=== PATIENT | female | born 1985 | race Caucasian/White ===

== ENCOUNTER 2018-07-28 13:35 | Emergency (ER) | END 2018-07-28 17:23 | disposition home or self-care (01) ==

== ENCOUNTER 2018-08-24 07:35 | Emergency (ER) | payer MEDICAID ==
[~2018-08-24] VITALS: Ht 157.5 cm; Wt 62.8 kg
[~2018-08-24 07:35] MED LIST: DOCU-144 PO
[2018-08-24 07:36] VITALS: Ht 157.5 cm; Wt 62.8 kg
[2018-08-24] MEDS ORDERED: SOD CHLORIDE 0.9% 1,000 ML IV STA (08:20)
--- NOTE | 2018-08-24 08:28 | ERD ---
ER Documentation Chief Complaint Chief Complaint nausea and vomitting, feel bloated since 2 am today LMP - 07/05/18 HPI 33-year-old female with EGA at 7 weeks approximately by LMP 07/05/2018, presents the emergency department complaining of excessive nausea and vomiting since 2 AM. Patient complains of 6 episodes of nonbloody nonbilious emesis. Patient denies vaginal bleeding or urinary symptoms. Patient has established care with Dr. Hernandes. ROS All systems reviewed and are negative except as per history of present illness. Medications Home Meds Active Scripts Doxylamine Succinate (Unisom) 25 Mg Tablet, 25 MG PO QHS, #30 TAB Prov:SABIHA BURT MD 08/24/18 Pyridoxine Hcl* (Pyridoxine Hcl*) 50 Mg Tablet, 50 MG PO QHS, #30 TAB Prov:SABIHA BURT MD 08/24/18 Docusate Sodium* (Colace*) 100 Mg Capsule, 100 MG PO TID, #30 CAP Prov:SABIHA BURT MD 07/28/18 Allergies Allergies: Coded Allergies: No Known Allergy (Unverified , 07/28/18) PMhx/Soc Medical and Surgical Hx: pt denies Medical Hx, pt denies Surgical Hx Hx Miscellaneous Medical Probl: No Hx Alcohol Use: No Hx Substance Use: No Hx Tobacco Use: No Physical Exam Vitals Vital Signs Date Temp Pulse Resp B/P (MAP) Pulse Ox O2 O2 Flow FiO2 Time Delivery Rate 08/24/18 98.2 78 16 110/76 99 Room Air 10:57 (87) 08/24/18 97.0 68 19 103/50 97 07:36 (67) Physical Exam Const: No acute distress Head: Atraumatic Eyes: Normal Conjunctiva ENT: Normal External Ears, Nose and Mouth. Neck: Full range of motion. No meningismus. Resp: Clear to auscultation bilaterally Cardio: Regular rate and rhythm, no murmurs Abd: Soft, non tender, non distended. Normal bowel sounds Skin: No petechiae or rashes Back: No midline or flank tenderness Ext: No cyanosis, or edema Neur: Awake and alert Psych: Normal Mood and Affect Result Diagram: 08/24/18 0840 1/10/19 0840 Results 24 hrs Laboratory Tests Test 08/24/18 08:40 White Blood Count 10.6 10^3/ul Red Blood Count 4.22 10^6/ul Hemoglobin 13.4 g/dl Hematocrit 39.1 % Mean Corpuscular Volume 92.7 fl Mean Corpuscular Hemoglobin 31.8 pg Mean Corpuscular Hemoglobin Concent 34.3 g/dl Red Cell Distribution Width 13.4 % Platelet Count 244 10^3/UL Mean Platelet Volume 11.0 fl Immature Granulocytes % 0.500 % Neutrophils % 75.5 % Lymphocytes % 17.4 % Monocytes % 5.7 % Eosinophils % 0.4 % Basophils % 0.5 % Nucleated Red Blood Cells % 0.0 /100WBC Immature Granulocytes # 0.050 10^3/ul Neutrophils # 8.0 10^3/ul Lymphocytes # 1.8 10^3/ul Monocytes # 0.6 10^3/ul Eosinophils # 0.0 10^3/ul Basophils # 0.1 10^3/ul Nucleated Red Blood Cells # 0.0 10^3/ul Urine Color YELLOW Urine Clarity SLIGHTLY CLOUDY Urine pH 8.0 Urine Specific [place] 1.012 Urine Ketones NEGATIVE mg/dL Urine Nitrite NEGATIVE mg/dL Urine Bilirubin NEGATIVE mg/dL Urine Urobilinogen NEGATIVE mg/dL Urine Leukocyte Esterase NEGATIVE Binh/ul Urine Microscopic RBC 5 /HPF Urine Microscopic WBC 1 /HPF Urine Squamous Epithelial Cells FEW /HPF Urine Amorphous Crystals MODERATE /HPF Urine Mucus FEW /HPF Urine Hemoglobin NEGATIVE mg/dL Urine Glucose NEGATIVE mg/dL Urine Total Protein NEGATIVE mg/dl Sodium Level 137 mmol/L Potassium Level 3.7 mmol/L Chloride Level 102 mmol/L Carbon Dioxide Level 24 mmol/L Anion Gap 11 Blood Urea Nitrogen 10 mg/dl Creatinine 0.58 mg/dl Est Glomerular Filtrat Rate mL/min > 60 mL/min Glucose Level 98 mg/dl Calcium Level 9.3 mg/dl Total Bilirubin 0.6 mg/dl Direct Bilirubin 0.00 mg/dl Indirect Bilirubin 0.6 mg/dl Aspartate Amino Transf (AST/SGOT) 19 IU/L Alanine Aminotransferase (ALT/SGPT) 16 IU/L Alkaline Phosphatase 71 IU/L Total Protein 7.6 g/dl Albumin 4.2 g/dl Globulin 3.40 g/dl Albumin/Globulin Ratio 1.23 Lipase 35 U/L Beta HCG, Quantitative 872634.0 mIU/ml Current Medications Medications Dose Sig/Laureano Start Time Status Last (Trade) Ordered Route PRN Stop Time Admin Dose Reason Admin Sodium 1,000 ml @ Q1H STAT 08/24/18 DC 08/24/18 Chloride 1,000 mls/hr IV 08:20 08:44 08/24/18 09:19 5 mg ONCE ONCE 08/24/18 DC 08/24/18 Metoclopramid IV 08:30 08:50 e HCl 08/24/18 08:31 (Reglan) Procedures/MDM Vital signs stable, Physical exam unremarkable. Differential diagnosis include but not limited to: Gastroenteritis, appendicitis, dehydration, hyperemesis gravidarum, UTI, anemia. Physical examination and clinical presentation most likely consistent with hyperemesis during . During the ED course the patient remained hemodynamically stable and asymptomatic, she received IV hydration and Reglan p.o. with significant improvement of the symptoms. Results and clinical impression discussed with patient who agrees with management. The patient is stable to be treated outpatient and will be discharged home with close monitoring and follow-up in 2 days with her primary physician. The patient was instructed regarding the outcomes and the potential complications like severe bleeding and . If the patient presents severe bleeding or pain, she was instructed to return to the hospital immediately. Disclaimer: Inadvertent spelling and grammatical errors are likely due to EHR/dictation software use and do not reflect on the overall quality of patient care. Also, please note that the electronic time recorded on this note does not necessarily reflect the actual time of the patient encounter. Departure Diagnosis: Primary Impression: Hyperemesis affecting , antepartum Condition: Stable Additional Instructions: Muchas jr por [facility] para hess servicio. Esperamos que en hess visita a la stephanie de emergencia hess problema medico haya sido solucionado y que se sienta mucho mejor. Para estar seguros que hess mejoria sigue en proceso, le pedimos el favor de hacer bryan susan de seguimiento medico con hess doctor primario en los proximos 2-4 bose. Lleve con usted estos documentos y las medicinas recetadas. Si bari sintomas empeoran, NO SE ESPERE, por favor regrese a stephanie de emergencia INMEDIATAMENTE. En bishop que usted no tenga un mdico de atencin primaria: Llame al mdico o clnica comunitaria de referencia que aparece abajo brien las horas de consultorio para hacer bryan susan para que le vean. CLINICAS: [facility] [phone] [facility] [phone] [address] [facility] [phone] [address] [facility]. [place] [phone] [facility]. [place] [phone] [facility]. [phone] SABIHA RAMIRES MD Aug 24, 2018 08:28
[2018-08-24] MEDS ORDERED: METOCLOPRAMIDE 10 MG INJ IV ONE (08:30)
[2018-08-24] MEDS ORDERED: DOXY25TA55 PO (10:49)
[2018-08-24] MEDS ORDERED: PYRI50TA14 PO (10:49)
[2018-08-24 10:57] VITALS: BP 110/76; PULSE 78; RESP 16
== END 2018-08-24 10:59 | disposition home or self-care (01) ==
LOC: FTE 07:35
DX: O21.9 Vomiting of pregnancy, unspecified (principal); Z3A.01 Less than 8 weeks gestation of pregnancy
CPT/HCPCS: 80053; 81001; 81003; 83690; 84702; 85025; J2765; J7030; Z7502

== ENCOUNTER 2018-11-21 14:32 | Emergency (ER) | payer MEDICAID ==
[~2018-11-21] VITALS: Ht 160 cm; Wt 65.1 kg
[~2018-11-21 14:32] MED LIST changes: +DOXY25TA55 PO; +PYRI50TA14 PO
[2018-11-21 15:02] VITALS: BP 112/63; PULSE 83; RESP 20; Ht 160 cm; Wt 65.1 kg
[2018-11-21] MEDS ORDERED: BEN25 PO (16:20)
[2018-11-21] MEDS ORDERED: NPH10OT RIGHT EAR (16:20)
[2018-11-21] MEDS ORDERED: ACET500C5 PO (16:20)
--- NOTE | 2018-11-21 16:25 | ERD ---
ER Documentation Chief Complaint Chief Complaint c/o sore throat and right ear pain x3 days. 20 weeks HPI 33-year-old female patient with no significant past medical history is a presents to the ED having right ear pain, sore throat, cough that started about 3 days ago. Denies any recent swimming or using Q-tips. Denies any nausea, vomiting, diarrhea, neck stiffness, vaginal bleeding, vaginal discharge, abdominal pain, chest pain, shortness of breath. Reports that her last menstruation is on July 06, 2019. 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 ROS All systems reviewed and are negative except as per history of present illness. Medications Home Meds Active Scripts Neomycin/Polymyxin/Hydrocort* (Cortisporin* Otic) 10 Ml Susp, 4 DROP RIGHT EAR QID for 7 Days, EA Prov:MIR ECHEVARRIA PA-C 11/21/18 Acetaminophen* (Tylophen*) 500 Mg Capsule, 1 CAP PO Q6H PRN for PAIN AND OR ELEVATED TEMP, #20 CAP Prov:MIR ECHEVARRIA PA-C 11/21/18 Diphenhydramine Hcl* (Benadryl*) 25 Mg Cap, 25 MG PO Q6, #30 CAP Prov:MIR ECHEVARRIA PA-C 11/21/18 Doxylamine Succinate (Unisom) 25 Mg Tablet, 25 MG PO QHS, #30 TAB Prov:SABIHA BURT MD 08/24/18 Pyridoxine Hcl* (Pyridoxine Hcl*) 50 Mg Tablet, 50 MG PO QHS, #30 TAB Prov:SABIHA BURT MD 08/24/18 Docusate Sodium* (Colace*) 100 Mg Capsule, 100 MG PO TID, #30 CAP Prov:SABIHA BURT MD 07/28/18 Allergies Allergies: Coded Allergies: No Known Allergy (Unverified , 11/21/18) PMhx/Soc Medical and Surgical Hx: pt denies Medical Hx, pt denies Surgical Hx Hx Miscellaneous Medical Probl: No Hx Alcohol Use: No Hx Substance Use: No Hx Tobacco Use: No Smoking Status: Never smoker FmHx Family History: No diabetes, No coronary disease Physical Exam Vitals Vital Signs Date Temp Pulse Resp B/P (MAP) Pulse Ox O2 O2 Flow FiO2 Time Delivery Rate 11/21/18 97.7 83 20 112/63 97 15:02 (79) Physical Exam Const: [id number], well-nourished. In no acute distress. Head: Atraumatic, normocephalic Eyes: Normal Conjunctiva without injection. No purulent discharge. PERRL. EOMI ENT: Normal external ear. Ear canal without erythema. Tympanic membrane pearly jamil without effusion or bulging. Tenderness palpation of the right tragus and pinna. No tenderness palpation of the bilateral mastoids. Nasal canal clear with normal turbinates. Moist oropharynx without tonsillar exudates. Non- erythematous pharynx. Uvula midline. No drooling. No trismus. Neck: Full range of motion. No meningismus. No cervical lymphadenopathy. Resp: Clear to auscultation bilaterally. No wheezing, rhonchi, rales, or crackles. No accessory muscle use. No retractions. Cardio: Regular rate and rhythm. No murmurs, rubs or gallops. Abd: Soft, non tender, non distended. Normal bowel sounds. No palpable masses. No rebound tenderness. No guarding. Skin: No petechiae or rashes Back: No midline tenderness. No CVA tenderness. Ext: No cyanosis, or edema. Neur: Awake and alert. Psych: Normal Mood and Affect Results 24 hrs Current Medications Medications Dose Sig/Laureano Start Time Status Last (Trade) Ordered Route PRN Stop Time Admin Dose Reason Admin 500 mg ONCE ONCE 11/21/18 DC 11/21/18 Acetaminophen PO 16:30 11/21/18 16:16 (Tylenol 16:30 Tab) Procedures/MDM 33-year-old female patient with no significant past medical history presents the ED complaining of sore throat, right ear pain that started 3 days ago. Patient is afebrile and nontoxic-appearing. She is not complaining of any vaginal bleeding, vaginal discharge, dysuria, abdominal pain, chest pain during the . Patient's physical exam is consistent with otitis externa. Low suspicion for otitis media or mastoiditis. Patient's physical exam include lungs which were clear to auscultation and a normal pulse oximetry. Patient is speaking in full sentences. There is a low suspicion for tympanic membrane rupture, pneumonia, epiglottitis, croup, viral/strep pharyngitis, sinusitis, peritonsillar abscess, retropharyngeal abscess, meningitis, sepsis, acute abdomen or other emergent conditions. Diagnosis: Ear pain, Sore throat, Tylenol, Cough Discharge medications: Cortisporin Otic,Benadryl Follow up with primary care physician in 1-2 days. Instructed patient to return to the ED sooner for any worsening symptoms. Patient's questions were answered. Patient is hemodynamically stable. Patient understood and agreed with discharge plan. Patient discharged stable. Disclaimer: Inadvertent spelling and grammatical errors are likely due to EHR/dictation software use and do not reflect on the overall quality of patient care. Also, please note that the electronic time recorded on this note does not necessarily reflect the actual time of the patient encounter. Departure Diagnosis: Primary Impression: Sore throat Additional Impression: Cough Condition: Stable Patient Instructions: Uri, Viral, No Abx (Adult), External Ear Infection (Adult) Referrals: [facility] YOU HAVE RECEIVED A MEDICAL SCREENING EXAM AND THE RESULTS INDICATE THAT YOU DO NOT HAVE A CONDITION THAT REQUIRES URGENT TREATMENT IN THE EMERGENCY DEPARTMENT. FURTHER EVALUATION AND TREATMENT OF YOUR CONDITION CAN WAIT UNTIL YOU ARE SEEN IN YOUR DOCTORS OFFICE WITHIN THE NEXT 1-2 DAYS. IT IS YOUR RESPONSIBILITY TO MAKE AN APPOINTMENT FOR FOLOW-UP CARE. IF YOU HAVE A PRIMARY DOCTOR --you should call your primary doctor and schedule an appointment IF YOU DO NOT HAVE A PRIMARY DOCTOR YOU CAN CALL OUR PHYSICIAN REFERRAL HOTLINE AT IF YOU CAN NOT AFFORD TO SEE A PHYSICIAN YOU CAN CHOSE FROM THE FOLLOWING [facility] CLINICS [facility] [address] [facility]. [facility] [address] [facility] [address] [facility] [address] [facility] [address] [facility]. [facility]. [address] [facility] YOU HAVE RECEIVED A MEDICAL SCREENING EXAM AND THE RESULTS INDICATE THAT YOU DO NOT HAVE A CONDITION THAT REQUIRES URGENT TREATMENT IN THE EMERGENCY DEPARTMENT. FURTHER EVALUATION AND TREATMENT OF YOUR CONDITION CAN WAIT UNTIL YOU ARE SEEN IN YOUR DOCTORS OFFICE WITHIN THE NEXT 1-2 DAYS. IT IS YOUR RESPONSIBILITY TO MAKE AN APPOINTMENT FOR FOLOW-UP CARE. IF YOU HAVE A PRIMARY DOCTOR --you should call your primary doctor and schedule and appointment IF YOU DO NOT HAVE A PRIMARY DOCTOR YOU CAN CALL OUR PHYSICIAN REFERRAL HOTLINE AT . IF YOU CAN NOT AFFORD TO SEE A PHYSICIAN YOU CAN CHOSE FROM THE FOLLOWING [facility] INSTITUTIONS: [facility] [address] [place] [address] [facility] [place] [address] [place], [place] [id number] [place] [address] [address] [place] [address] [facility] Additional Instructions: Call your primary care doctor TOMORROW for an appointment during the next 2-3 days for further care and treatment.See the doctor sooner or return here if your condition worsens before your appointment time. MIR ECHEVARRIA PA-C Nov 21, 2018 16:25
[2018-11-21] MEDS ORDERED: ACETAMINOPHEN 325 MG TAB PO ONE (16:30)
== END 2018-11-21 16:27 | disposition home or self-care (01) ==
LOC: FTE 14:32
DX: O99.512 Diseases of the respiratory system complicating pregnancy, second trimester (principal); J02.9 Acute pharyngitis, unspecified; O99.89 Other specified diseases and conditions complicating pregnancy, childbirth and the puerperium; H92.01 Otalgia, right ear; Z3A.20 20 weeks gestation of pregnancy
CPT/HCPCS: Z7502; Z7610; 99283